=== PATIENT | male | born 1955 | race Caucasian/White ===

== ENCOUNTER 2022-06-06 08:30 | Emergency (ER) | payer MEDICARE, OTHER ==
[2022-06-06] MEDS ORDERED: PREDNISONE20 MG PO (10:27)
[2022-06-06] MEDS ORDERED: VENTOLIN HFA18 GM INH (10:27)
[2022-06-06] MEDS ORDERED: DOXYCYCLINE HY100 MG PO (10:27)
--- OUTSIDE RECORDS SUMMARY | 2022-06-06 11:11 | XMS ---
PreManage Notification: ZANE JONES Security Sales Operations Events No recent Security Events currently on file CRITERIA MET - [facility] - 2 Visits in 30 Days CARE PROVIDERS CL[facility] BRIONES [facility] Current PHONE: Unknown Janice has no Care Guidelines for this patient. EMary VISIT COUNT (12 MO.) [address] TOTAL 2 NOTE: Visits indicate total known visits. ED/UCC VISIT TRACKING (12 MO.) 06/06/2022 08:31 [facility] TYPE: Emergency COMPLAINT: - FLU SYMPTOMS, FEVER, COUGH 05/31/2022 07:43 [facility] Kael[facility] OR TYPE: Emergency COMPLAINT: - R ANKLE INJURED INPATIENT VISIT TRACKING (12 MO.) No inpatient visits to display in this time frame [email or web address]
== END 2022-06-06 10:40 | disposition home or self-care (01) ==
LOC: ED 08:30
DX: J10.1 Influenza due to other identified influenza virus with other respiratory manifestations (principal); J40 Bronchitis, not specified as acute or chronic; Z20.822 Contact with and (suspected) exposure to COVID-19
CPT/HCPCS: 71045; 87502; 94640; 99284-25; C9803; J7512; U0003